=== PATIENT | female | born 1975 | race Two or more races ===

== ENCOUNTER 2016-12-13 12:25 | Emergency (ER) | payer MEDICAID ==
[~2016-12-13] VITALS: Ht 175.3 cm; Wt 119.3 kg
[~2016-12-13 12:25] MED LIST: DICL50TA4; GLYB2.5T8; INSUPOW; LISI-646; METF-370
[2016-12-13 13:44] VITALS: BP 132/87
[2016-12-13] MEDS ORDERED: cefTRIAXone SOD 1,000 MG VL IM ONE (14:15)
[2016-12-13 14:49] LABS: Urine Bacteria FEW /hpf (None Seen); Urine Blood 2+ /uL (Negative); Urine Specific Gravity 1.009 (1.001-1.035); Urine WBC 348 /hpf (0 - 5)
== END 2016-12-13 14:36 | disposition home or self-care (01) ==
LOC: ER 12:25
DX: N39.0 Urinary tract infection, site not specified (principal); E11.9 Type 2 diabetes mellitus without complications; I10 Essential (primary) hypertension
CPT/HCPCS: 81001; 96372; 99283; J0696

== ENCOUNTER 2017-01-12 12:55 | Emergency (ER) | payer MEDICAID ==
[~2017-01-12] VITALS: Ht 172.7 cm; Wt 119.3 kg
[2017-01-12 14:26] VITALS: BP 125/77
== END 2017-01-12 14:39 | disposition home or self-care (01) ==
LOC: ER 12:55
DX: H10.9 Unspecified conjunctivitis (principal); E11.9 Type 2 diabetes mellitus without complications; I10 Essential (primary) hypertension; Z79.4 Long term (current) use of insulin

== ENCOUNTER 2018-01-07 14:34 | Emergency (ER) | payer MEDICAID ==
[~2018-01-07] VITALS: Ht 172.7 cm; Wt 124.7 kg
[2018-01-07] MEDS ORDERED: LIDOCAINE 1% HCL (LOCAL ANESTH.) INJ 20ML MDV IJ ONE (15:00)
[2018-01-07] MEDS ORDERED: TETANUS-DIPTH-ACEL PERTUSSIS 0.5ML SYRG IM ONE (15:15)
[2018-01-07 15:20] VITALS: BP 130/83
== END 2018-01-07 15:28 | disposition home or self-care (01) ==
LOC: ER 14:34
DX: S61.411A Laceration without foreign body of right hand, initial encounter (principal); E11.9 Type 2 diabetes mellitus without complications; I10 Essential (primary) hypertension; W25.XXXA Contact with sharp glass, initial encounter; Y93.E9 Activity, other interior property and clothing maintenance; Y92.89 Other specified places as the place of occurrence of the external cause; Y99.8 Other external cause status
CPT/HCPCS: 12002; 90471; 90715; 99283; J2001

== ENCOUNTER 2018-06-17 09:28 | Emergency (ER) | payer MEDICAID ==
[~2018-06-17] VITALS: Ht 175.3 cm; Wt 125.2 kg
[2018-06-17 09:43] VITALS: BP 130/61
== END 2018-06-17 11:43 | disposition home or self-care (01) ==
LOC: ER 09:28
DX: L02.211 Cutaneous abscess of abdominal wall (principal); E11.9 Type 2 diabetes mellitus without complications; I10 Essential (primary) hypertension; Z90.49 Acquired absence of other specified parts of digestive tract; Z79.4 Long term (current) use of insulin
CPT/HCPCS: 10060; 99283; C1887

== ENCOUNTER 2018-11-05 19:15 | Emergency (ER) | payer MEDICAID ==
[~2018-11-05] VITALS: Ht 172.7 cm; Wt 111.6 kg
[2018-11-05 20:17] VITALS: BP 156/97
[2018-11-05] MEDS ORDERED: ACETAMINOPHEN/CODEINE#3 (300/30mg) TAB PO ONE (20:30)
== END 2018-11-05 20:36 | disposition home or self-care (01) ==
LOC: ER 19:18
DX: H10.33 Unspecified acute conjunctivitis, bilateral (principal); E11.9 Type 2 diabetes mellitus without complications; I10 Essential (primary) hypertension; Z90.49 Acquired absence of other specified parts of digestive tract

== ENCOUNTER 2019-02-12 10:41 | Emergency (ER) | payer MEDICAID ==
[~2019-02-12] VITALS: Ht 172.7 cm; Wt 107.5 kg
[2019-02-12 11:03] VITALS: BP 136/76
[2019-02-12 12:49] LABS: Basophils # (auto) 0 uL; Basophils % (auto) 0.4 % (0.0-2.0); Eosinophils # (auto) 0.1 uL; Eosinophils % (auto) 1.4 % (0.0-7.0); Hematocrit 43.8 % (36.0-46.0); Hemoglobin 14.5 g/dL (12.2-16.2); Lymphocytes # (auto) 1.5 uL; Lymphocytes % (auto) 23.9 % (10.0-50.0); Mean Corpuscular Hemoglobin 30.8 pg (28.0-32.0); Mean Corpuscular Hgb Conc. 33.1 g/dL (32.0-36.0); Mean Corpuscular Volume 92.9 fL (80.0-100.0); Monocytes # (auto) 0.4 uL; Monocytes % (auto) 5.9 % (0.0-12.0); Neutrophils # (auto) 4.3 uL; Neutrophils % (auto) 68.4 % (37.0-80.0); Platelet Count (auto) 180 10^3/uL (140-450); Red Blood Cells 4.71 10^6/uL (4.0-5.20); Red Cell Distribution Width 13.5 % (11.8-14.3); White Blood Cell 6.3 10^3/uL (4.4-10.8)
[2019-02-12 13:07] LABS: Anion Gap 6 (5-15); Blood Urea Nitrogen 12 mg/dL (7-18); Calcium 8.6 mg/dL (8.5-10.1); Carbon Dioxide 28 mmol/L (21-32); Chloride 99 mmol/L (98-107); Potassium 4.1 mmol/L (3.5-5.1); Sodium 133 mmol/L (136-145)
[2019-02-12 13:15] LABS: Alanine Aminotransferase 33 U/L (13-56); Alkaline Phosphatase 125 U/L (45-117); Aspartate Aminotransferase 22 U/L (15-37); BUN/Creatinine Ratio 12.8; Bilirubin, Total 0.4 mg/dL (0.2-1.0); GFR African American 84 mL/min; GFR Non-African American 69 mL/min; Total Protein 7.3 g/dL (6.4-8.2)
[2019-02-12 13:23] LABS: Glucose 524 mg/dL (74-106)
[2019-02-12] MEDS ORDERED: SODIUM CHLORIDE 0.9% 1,000 ML IV ONE ×2 (16:54)
[2019-02-12] MEDS ORDERED: MORPHINE SULFATE 4 MG/ML SYR/VIAL IV ONE (17:00)
[2019-02-12] MEDS ORDERED: ONDANSETRON HCL 4 MG/2 ML VIAL IV ONE (17:00)
[2019-02-12] MEDS ORDERED: InsuLIN REG 1unit/0.01ml Soln (100units/ml) IV ONE (18:00)
== END 2019-02-12 21:36 | disposition home or self-care (01) ==
LOC: ER 10:44
DX: S39.012A Strain of muscle, fascia and tendon of lower back, initial encounter (principal); E11.65 Type 2 diabetes mellitus with hyperglycemia; I10 Essential (primary) hypertension; Z90.49 Acquired absence of other specified parts of digestive tract; W00.0XXA Fall on same level due to ice and snow, initial encounter; Y93.89 Activity, other specified; Y92.89 Other specified places as the place of occurrence of the external cause; Y99.8 Other external cause status
CPT/HCPCS: 36415; 72100; 80053; 82962; 84484; 85025

== ENCOUNTER 2019-06-04 11:56 | Emergency (ER) | payer MEDICAID ==
[~2019-06-04] VITALS: Ht 175.3 cm; Wt 120.2 kg
[2019-06-04 12:25] VITALS: BP 141/92
[2019-06-04] MEDS ORDERED: ACETAMINOPHEN 500 MG TAB PO ONE (13:15)
== END 2019-06-04 13:15 | disposition home or self-care (01) ==
LOC: ER 11:56
DX: S80.212A Abrasion, left knee, initial encounter (principal); I10 Essential (primary) hypertension; E11.9 Type 2 diabetes mellitus without complications; W19.XXXA Unspecified fall, initial encounter; Y93.01 Activity, walking, marching and hiking; Y92.89 Other specified places as the place of occurrence of the external cause; Y99.8 Other external cause status
CPT/HCPCS: 73562

== ENCOUNTER 2019-11-03 13:12 | Emergency (ER) | payer MEDICAID ==
[~2019-11-03] VITALS: Ht 172.7 cm; Wt 111.6 kg
[2019-11-03 13:24] VITALS: BP 134/82
[2019-11-03] MEDS ORDERED: KETOROLAC TROMETH 60MG/2ML VIAL IM ONE (14:00)
== END 2019-11-03 14:18 | disposition home or self-care (01) ==
LOC: ER 13:12
DX: M77.9 Enthesopathy, unspecified (principal)
CPT/HCPCS: 73030; 96372; 99283; J1885

== ENCOUNTER 2019-11-09 10:36 | Emergency (ER) | payer MEDICAID ==
[~2019-11-09] VITALS: Ht 172.7 cm; Wt 111.6 kg
[2019-11-09 12:43] LABS: Basophils # (auto) 0 10 ^3/uL (0-0.2); Basophils % (auto) 0.3 % (0.0-2.0); Eosinophils # (auto) 0.1 10 ^3/uL (0-0.8); Eosinophils % (auto) 1.5 % (0.0-7.0); Hematocrit 46.8 % (36.0-46.0); Hemoglobin 15.5 g/dL (12.2-16.2); Lymphocytes # (auto) 1.6 10 ^3/uL (0.4-5.4); Lymphocytes % (auto) 25.2 % (10.0-50.0); Mean Corpuscular Hemoglobin 30.1 pg (28.0-32.0); Mean Corpuscular Hgb Conc. 33.1 g/dL (32.0-36.0); Mean Corpuscular Volume 90.8 fL (80.0-100.0); Monocytes # (auto) 0.4 10 ^3/uL (0-1.3); Monocytes % (auto) 6.7 % (0.0-12.0); Neutrophils # (auto) 4.2 10 ^3/uL (1.6-8.6); Neutrophils % (auto) 66.3 % (37.0-80.0); Platelet Count (auto) 186 10^3/uL (140-450); Red Blood Cells 5.15 10^6/uL (4.0-5.20); Red Cell Distribution Width 13.5 % (11.8-14.3); White Blood Cell 6.4 10^3/uL (4.4-10.8)
[2019-11-09 13:01] LABS: INR 1.01 (0.9-1.15); Partial Thromboplastin Time 25.9 sec (23.0-31.2)
[2019-11-09 13:02] LABS: Albumin 3.3 g/dL (3.4-5.0); Anion Gap 7 (5-15); Blood Urea Nitrogen 14 mg/dL (7-18); Calcium 8.8 mg/dL (8.5-10.1); Carbon Dioxide 25 mmol/L (21-32); Chloride 98 mmol/L (98-107); Glucose 391 mg/dL (74-106); Magnesium 2.2 mg/dL (1.6-2.6); Potassium 4.3 mmol/L (3.5-5.1); Sodium 130 mmol/L (136-145)
[2019-11-09 13:10] LABS: Alanine Aminotransferase 49 U/L (13-56); Alkaline Phosphatase 157 U/L (45-117); Aspartate Aminotransferase 28 U/L (15-37); BUN/Creatinine Ratio 19.2; Bilirubin, Total 0.7 mg/dL (0.2-1.0); GFR African American 111 mL/min; GFR Non-African American 92 mL/min; Total Protein 7.9 g/dL (6.4-8.2)
[2019-11-09 14:55] VITALS: BP 129/92
[2019-11-09] MEDS ORDERED: SODIUM CHLORIDE 0.9% 1,000 ML IVB ONE (15:15)
[2019-11-09] MEDS ORDERED: IOHEXOL 350 MG/ML 100ML IJ ONE (15:23)
== END 2019-11-09 15:59 | disposition left against medical advice (07) ==
LOC: ER 10:36
DX: R06.02 Shortness of breath (principal); E87.1 Hypo-osmolality and hyponatremia; R79.1 Abnormal coagulation profile; E11.9 Type 2 diabetes mellitus without complications; I10 Essential (primary) hypertension; Z20.828 Contact with and (suspected) exposure to other viral communicable diseases
CPT/HCPCS: 36415; 71045; 80053; 81025; 83605; 83735; 83880; 84443; 84484; 85025; 85379; 85610; 85730; 87040; 87426

== ENCOUNTER 2021-01-03 11:46 | Emergency (ER) | payer MEDICAID ==
[~2021-01-03] VITALS: Ht 172.7 cm; Wt 108.9 kg
[~2021-01-03 11:46] MED LIST changes: -LISI-646; +LISI20TA28
[2021-01-03] MEDS ORDERED: SODIUM CHLORIDE 0.9% 1,000 ML IV ONE ×2 (12:15)
[2021-01-03 12:41] LABS: Basophils # (auto) 0 10 ^3/uL (0-0.2); Basophils % (auto) 0.4 % (0.0-2.0); Eosinophils # (auto) 0.1 10 ^3/uL (0-0.8); Eosinophils % (auto) 1.8 % (0.0-7.0); Hematocrit 45.7 % (36.0-46.0); Hemoglobin 14.4 g/dL (12.2-16.2); Lymphocytes # (auto) 1.4 10 ^3/uL (0.4-5.4); Lymphocytes % (auto) 26.4 % (10.0-50.0); Mean Corpuscular Hemoglobin 28.4 pg (28.0-32.0); Mean Corpuscular Hgb Conc. 31.6 g/dL (32.0-36.0); Monocytes # (auto) 0.3 10 ^3/uL (0-1.3); Monocytes % (auto) 5.7 % (0.0-12.0); Neutrophils # (auto) 3.4 10 ^3/uL (1.6-8.6); Neutrophils % (auto) 65.7 % (37.0-80.0); Nucleated Red Blood Cells % 0.1 %; Red Blood Cells 5.08 10^6/uL (4.0-5.20); Red Cell Distribution Width 14.6 % (11.8-14.3); White Blood Cell 5.2 10^3/uL (4.4-10.8)
[2021-01-03] MEDS ORDERED: InsuLIN REG 1unit/0.01ml Soln (100units/ml) IV ONE ×2 (12:45→15:00)
[2021-01-03 12:56] LABS: Albumin 2.6 g/dL (3.4-5.0); Calcium 8.6 mg/dL (8.5-10.1); Potassium 4.7 mmol/L (3.5-5.1)
[2021-01-03 13:02] LABS: Urine Bacteria NONE SEEN /hpf (None Seen); Urine Blood 1+ /uL (Negative); Urine Specific Gravity 1.031 (1.001-1.035); Urine WBC 8 /hpf (0 - 5)
[2021-01-03 13:04] LABS: BUN/Creatinine Ratio 18.3; Bilirubin, Total 0.5 mg/dL (0.2-1.0); Total Protein 7.4 g/dL (6.4-8.2)
[2021-01-03] MEDS ORDERED: InsuLIN REG 1unit/0.01ml Soln (100units/ml) SC ONE (15:15)
[2021-01-03 16:00] VITALS: BP 146/74
== END 2021-01-03 16:03 | disposition home or self-care (01) ==
LOC: EDBD 11:46 → ER 11:46
DX: E11.10 Type 2 diabetes mellitus with ketoacidosis without coma (principal); I10 Essential (primary) hypertension; Z90.49 Acquired absence of other specified parts of digestive tract
CPT/HCPCS: 36415; 71045; 72100; 80053; 81001; 82962; 83036; 83880; 84484; 85025; 93005; 96361; 96372; 96374; 99285; J1815; J7030

== ENCOUNTER 2021-12-16 09:10 | Emergency (ER) | payer MEDICAID ==
[~2021-12-16] VITALS: Ht 172.7 cm; Wt 125.0 kg
[2021-12-16 09:41] VITALS: BP 183/111
[2021-12-16 10:26] LABS: Albumin 2.6 g/dL (3.4-5.0); Calcium 8.7 mg/dL (8.5-10.1); Potassium 4.4 mmol/L (3.5-5.1)
[2021-12-16 10:30] LABS: Basophils # (auto) 0 10 ^3/uL (0-0.2); Basophils % (auto) 0.3 % (0.0-2.0); Eosinophils # (auto) 0 10 ^3/uL (0-0.8); Eosinophils % (auto) 0.4 % (0.0-7.0); Hematocrit 39.2 % (36.0-46.0); Hemoglobin 12.5 g/dL (12.2-16.2); Lymphocytes # (auto) 1.5 10 ^3/uL (0.4-5.4); Lymphocytes % (auto) 15.5 % (10.0-50.0); Mean Corpuscular Hemoglobin 28.4 pg (28.0-32.0); Mean Corpuscular Hgb Conc. 31.9 g/dL (32.0-36.0); Mean Corpuscular Volume 88.9 fL (80.0-100.0); Monocytes # (auto) 0.7 10 ^3/uL (0-1.3); Monocytes % (auto) 7.6 % (0.0-12.0); Neutrophils # (auto) 7.2 10 ^3/uL (1.6-8.6); Neutrophils % (auto) 76.2 % (37.0-80.0); Red Blood Cells 4.41 10^6/uL (4.0-5.20); Red Cell Distribution Width 15.8 % (11.8-14.3); White Blood Cell 9.5 10^3/uL (4.4-10.8)
[2021-12-16 10:31] LABS: BUN/Creatinine Ratio 33.3; Bilirubin, Total 0.6 mg/dL (0.2-1.0); Total Protein 6.5 g/dL (6.4-8.2)
[2021-12-16] MEDS ORDERED: SODIUM CHLORIDE 0.9% 1,000 ML IV ONE (11:15)
[2021-12-16] MEDS ORDERED: PIPERACILLIN-TAZOB 3.375GM 100 ML IV ONE (11:15)
[2021-12-16] MEDS ORDERED: cloNIDine HCL 0.1 MG TAB PO ONE (11:15)
[2021-12-16] MEDS ORDERED: IOHEXOL 350 MG/ML 100ML IJ ONE (11:16)
[2021-12-16] MEDS ORDERED: HYDROcodone-ACET 5/325MG TAB PO ONE (15:00)
[2021-12-16] MEDS ORDERED: KETOROLAC TROMETH 60MG/2ML VIAL IM ONE (15:00)
[2021-12-16] MEDS ORDERED: CLIN300C8 PO (15:16)
[2021-12-16] MEDS ORDERED: CEPH-510 PO (15:16)
[2021-12-16] MEDS ORDERED: IBU600T PO (15:16)
== END 2021-12-16 15:20 | disposition home or self-care (01) ==
LOC: ER 09:10
DX: L03.115 Cellulitis of right lower limb (principal); E11.65 Type 2 diabetes mellitus with hyperglycemia; I16.0 Hypertensive urgency; I11.0 Hypertensive heart disease with heart failure; I50.9 Heart failure, unspecified; Z90.49 Acquired absence of other specified parts of digestive tract
CPT/HCPCS: 36415; 71275; 80053; 83605; 85025; 85379; 87040; 93971; 96365; 96366; 96372; 99285; J1885; J2543; J7030; Q9967

== ENCOUNTER 2022-01-18 10:59 | Inpatient (IN) | payer MEDICAID ==
[~2022-01-18] VITALS: Ht 172.7 cm; Wt 113.6 kg
[~2022-01-18 10:59] MED LIST changes: +CEPH-510 PO; +CLIN300C8 PO; +IBU600T PO
[2022-01-18 11:31] VITALS: BP 125/68
[2022-01-18 12:31] LABS: Urine Bacteria NONE SEEN /hpf (None Seen); Urine Blood 3+ /uL (Negative); Urine Hyaline Cast FEW /lpf (0 - 2); Urine Mucus FEW (None Seen); Urine Specific Gravity 1.029 (1.001-1.035); Urine WBC 21 /hpf (0 - 5)
[2022-01-18 13:15] LABS: Basophils # (auto) 0 10 ^3/uL (0-0.2); Basophils % (auto) 0.4 % (0.0-2.0); Eosinophils # (auto) 0.1 10 ^3/uL (0-0.8); Eosinophils % (auto) 0.8 % (0.0-7.0); Hemoglobin 12.4 g/dL (12.2-16.2); Lymphocytes # (auto) 1.5 10 ^3/uL (0.4-5.4); Lymphocytes % (auto) 21.4 % (10.0-50.0); Mean Corpuscular Hemoglobin 27.8 pg (28.0-32.0); Mean Corpuscular Hgb Conc. 31.8 g/dL (32.0-36.0); Mean Corpuscular Volume 87.4 fL (80.0-100.0); Monocytes # (auto) 0.4 10 ^3/uL (0-1.3); Monocytes % (auto) 5.1 % (0.0-12.0); Neutrophils # (auto) 5.2 10 ^3/uL (1.6-8.6); Neutrophils % (auto) 72.3 % (37.0-80.0); Nucleated Red Blood Cells % 0.1 %; Red Blood Cells 4.46 10^6/uL (4.0-5.20); Red Cell Distribution Width 15.8 % (11.8-14.3); White Blood Cell 7.2 10^3/uL (4.4-10.8)
[2022-01-18 13:48] LABS: Potassium 3.1 mmol/L (3.5-5.1)
[2022-01-18 13:49] LABS: Albumin 2.4 g/dL (3.4-5.0); BUN/Creatinine Ratio 20.8; Bilirubin, Total 0.3 mg/dL (0.2-1.0); Calcium 7.9 mg/dL (8.5-10.1); Magnesium 1.3 mg/dL (1.6-2.6); Total Protein 6.9 g/dL (6.4-8.2)
[2022-01-18] MEDS ORDERED: HYDROcodone-ACET 5/325MG TAB PO PRN (17:45)
[2022-01-18] MEDS ORDERED: ONDANSETRON HCL 4 MG/2 ML VIAL IV PRN (17:45)
[2022-01-18] MEDS ORDERED: ACETAMINOPHEN 325 MG TAB PO PRN (17:45)
[2022-01-18] MEDS ORDERED: DOCUSATE SOD 100 MG CAP PO PRN (17:45)
[2022-01-18] MEDS ORDERED: DEXTROSE (50%) 50ML SYRG IV PRN (18:45)
[2022-01-18] MEDS ORDERED: POTASSIUM CHL 20 Meq TABLET PO ONE (19:30)
[2022-01-18] MEDS ORDERED: MAGNESIUM SULFATE 1GM/100ML 100 ML IV SCH (20:00)
[2022-01-18] MEDS ORDERED: CLINDAMYCIN 600MG IV 50 ML IV SCH (22:00)
[2022-01-18] MEDS ORDERED: InsuLIN REG 1unit/0.01ml Soln (100units/ml) SC SCH (22:00)
[2022-01-18] MEDS ORDERED: ACCU-CHEK COMFORT CURVE STRIP VI SCH (22:00)
[2022-01-19] MEDS ORDERED: InsuLIN REG 1unit/0.01ml Soln (100units/ml) SC SCH (07:00)
[2022-01-19] MEDS ORDERED: PANTOPRAZOLE 40 MG/10 ML VIAL INJ IV SCH (10:00)
== END 2022-01-20 03:11 | disposition left against medical advice (07) | DRG 383 ==
LOC: ER 10:59 → OVERFLOW 17:41
PROVIDERS: ADMIT Nurse Practitioner Family; ATTEND Nurse Practitioner Family
DX: L03.115 Cellulitis of right lower limb (principal); E11.42 Type 2 diabetes mellitus with diabetic polyneuropathy; I50.9 Heart failure, unspecified; I11.0 Hypertensive heart disease with heart failure; E87.6 Hypokalemia; Z90.49 Acquired absence of other specified parts of digestive tract; Z53.29 Procedure and treatment not carried out because of patient's decision for other reasons
CPT/HCPCS: 36415; 73700; 80053; 81001; 83605; 83735; 85025; 87040; G0378

== ENCOUNTER 2022-10-08 00:02 | Emergency (ER) | payer MEDICAID ==
[~2022-10-08] VITALS: Ht 172.7 cm; Wt 115.0 kg
[~2022-10-08 00:02] MED LIST changes: +CLIN300C70 PO; -CLIN300C8 PO; -LISI20TA28; +LISI20TA56
[2022-10-08] MEDS ORDERED: IBUP-1456 PO (02:36)
[2022-10-08] MEDS ORDERED: KETOROLAC TROMETH 60MG/2ML VIAL IM ONE (02:45)
[2022-10-08 03:50] VITALS: BP 166/95; PULSE 97; RESP 18; TEMP 98.2; O2SAT 97
== END 2022-10-08 03:05 | disposition home or self-care (01) ==
LOC: ER 00:02
DX: S83.91XA Sprain of unspecified site of right knee, initial encounter (principal); E11.9 Type 2 diabetes mellitus without complications; I10 Essential (primary) hypertension; Z90.49 Acquired absence of other specified parts of digestive tract; W18.39XA Other fall on same level, initial encounter; Y93.89 Activity, other specified; Y92.89 Other specified places as the place of occurrence of the external cause; Y99.8 Other external cause status
CPT/HCPCS: 29505; 73562; 96372; 99283; J1885

== ENCOUNTER 2023-03-09 16:06 | Inpatient (IN) | payer MEDICAID ==
[~2023-03-09] VITALS: Ht 172.7 cm; Wt 129.5 kg
[~2023-03-09 16:06] MED LIST changes: +CLIN150C PO; +IBUP-1456 PO
[2023-03-09 18:19] LABS: Basophils # (auto) 0 10 ^3/uL (0-0.2); Basophils % (auto) 0.2 % (0.0-2.0); Eosinophils # (auto) 0.2 10 ^3/uL (0-0.8); Eosinophils % (auto) 1.7 % (0.0-7.0); Hematocrit 33.2 % (36.0-46.0); Hemoglobin 10.8 g/dL (12.2-16.2); Lymphocytes # (auto) 1.9 10 ^3/uL (0.4-5.4); Lymphocytes % (auto) 19.6 % (10.0-50.0); Mean Corpuscular Hemoglobin 29.8 pg (28.0-32.0); Mean Corpuscular Hgb Conc. 32.7 g/dL (32.0-36.0); Mean Corpuscular Volume 91.2 fL (80.0-100.0); Monocytes # (auto) 0.5 10 ^3/uL (0-1.3); Monocytes % (auto) 5.3 % (0.0-12.0); Neutrophils # (auto) 7.2 10 ^3/uL (1.6-8.6); Neutrophils % (auto) 73.2 % (37.0-80.0); Nucleated Red Blood Cells % 0.1 %; Red Blood Cells 3.64 10^6/uL (4.0-5.20); Red Cell Distribution Width 14.4 % (11.8-14.3); White Blood Cell 9.8 10^3/uL (4.4-10.8)
[2023-03-09 18:24] LABS: Chloride 103 mmol/L (98-107); Potassium 3.7 mmol/L (3.5-5.1); Sodium 136 mmol/L (136-145)
[2023-03-09 18:25] LABS: Anion Gap 4 (5-15); Calcium 8.6 mg/dL (8.7-10.4); Carbon Dioxide 29 mmol/L (20-30)
[2023-03-09 18:30] LABS: BUN/Creatinine Ratio 14.9 (10.0-20.0); Blood Urea Nitrogen 21 mg/dL (9-23); Glucose 222 mg/dL (74-106)
[2023-03-09] MEDS ORDERED: DEXTROSE (50%) 50ML SYRG IV PRN (21:00)
[2023-03-09] MEDS ORDERED: FUR20T PO (21:19)
[2023-03-09] MEDS: ACCU-CHEK COMFORT CURVE STRIP VI SCH (22:15)
[2023-03-09] MEDS: cefTRIAXone 1GM/50ML D5W 50 ML IV ONE (22:24)
[2023-03-09] MEDS: ONDANSETRON HCL 4 MG/2 ML VIAL IV PRN (22:31)
[2023-03-09] MEDS: HYDROcodone-ACET 5/325MG TAB PO PRN (22:31)
[2023-03-09] MEDS: InsuLIN REG 1unit/0.01ml Soln (100units/ml) SC SCH (22:32)
[2023-03-09] MEDS: VANCOMYCIN 1GM/200ML 200 ML IV ONE (22:34)
[2023-03-09] MEDS: PIPERACILLIN-TAZOB 3.375GM 100 ML IV SCH (23:13)
[2023-03-09] MEDS: SODIUM CHLORIDE 0.9% 1,000 ML IV ONE (23:25)
[2023-03-10 04:56] LABS: Basophils # (auto) 0 10 ^3/uL (0-0.2); Basophils % (auto) 0.2 % (0.0-2.0); Eosinophils # (auto) 0.1 10 ^3/uL (0-0.8); Eosinophils % (auto) 1.2 % (0.0-7.0); Hematocrit 32.9 % (36.0-46.0); Hemoglobin 10.8 g/dL (12.2-16.2); Lymphocytes # (auto) 1.3 10 ^3/uL (0.4-5.4); Lymphocytes % (auto) 13.7 % (10.0-50.0); Mean Corpuscular Hemoglobin 29.9 pg (28.0-32.0); Mean Corpuscular Hgb Conc. 32.9 g/dL (32.0-36.0); Mean Corpuscular Volume 90.9 fL (80.0-100.0); Monocytes # (auto) 0.6 10 ^3/uL (0-1.3); Monocytes % (auto) 6.3 % (0.0-12.0); Neutrophils # (auto) 7.7 10 ^3/uL (1.6-8.6); Neutrophils % (auto) 78.6 % (37.0-80.0); Red Blood Cells 3.62 10^6/uL (4.0-5.20); Red Cell Distribution Width 14.3 % (11.8-14.3); White Blood Cell 9.8 10^3/uL (4.4-10.8)
[2023-03-10 05:08] LABS: Alanine Aminotransferase 14 U/L (7-40); Albumin 3.5 g/dL (3.2-4.8); Alkaline Phosphatase 121 U/L (46-116); Anion Gap 7 (5-15); Aspartate Aminotransferase 15 U/L (13-40); BUN/Creatinine Ratio 18.8 (10.0-20.0); Bilirubin, Total 0.2 mg/dL (0.2-1.0); Blood Urea Nitrogen 24 mg/dL (9-23); Calcium 8.3 mg/dL (8.7-10.4); Carbon Dioxide 25 mmol/L (20-30); Chloride 104 mmol/L (98-107); Glucose 224 mg/dL (74-106); Potassium 4.1 mmol/L (3.5-5.1); Sodium 136 mmol/L (136-145); Total Protein 6.9 g/dL (5.7-8.2)
[2023-03-10 08:04] LABS: Urine Epithelial Cast None Seen /hpf (<5)
[2023-03-10 08:11] LABS: Urine Bacteria FEW /hpf (None Seen); Urine Blood 2+ /uL (Negative); Urine Clarity HAZY (Clear); Urine Color Yellow (Yellow); Urine Hyaline Cast FEW /lpf (0 - 2); Urine Protein, UAD 3+ (Negative); Urine Specific Gravity 1.019 (1.001-1.035); Urine Urobilinogen Normal (Negative); Urine WBC 273 /hpf (0 - 5); Urine WBC Clumps PRESENT /hpf (None Seen)
[2023-03-10] MEDS: LISINOPRIL 20 MG TAB PO SCH (10:15)
[2023-03-10] MEDS: FUROSEMIDE 20 MG TAB PO SCH (10:15)
[2023-03-10] MEDS: NIFEdipine ER 30 MG TAB PO ONE (14:52)
[2023-03-10] MEDS: INSULIN LANTUS (GLARGINE) 1 /0.01ml (100units/ml) SC SCH (22:17)
[2023-03-11 05:00] VITALS: BP 143/87; PULSE 88; RESP 18; TEMP 98; O2SAT 100
[2023-03-11 07:27] LABS: Basophils # (auto) 0 10 ^3/uL (0-0.2); Basophils % (auto) 0.5 % (0.0-2.0); Eosinophils # (auto) 0.2 10 ^3/uL (0-0.8); Eosinophils % (auto) 2.7 % (0.0-7.0); Hematocrit 29.8 % (36.0-46.0); Hemoglobin 9.8 g/dL (12.2-16.2); Lymphocytes # (auto) 1.8 10 ^3/uL (0.4-5.4); Lymphocytes % (auto) 25.2 % (10.0-50.0); Mean Corpuscular Hemoglobin 30.2 pg (28.0-32.0); Mean Corpuscular Hgb Conc. 32.9 g/dL (32.0-36.0); Mean Corpuscular Volume 91.6 fL (80.0-100.0); Monocytes # (auto) 0.6 10 ^3/uL (0-1.3); Monocytes % (auto) 8.7 % (0.0-12.0); Neutrophils # (auto) 4.6 10 ^3/uL (1.6-8.6); Neutrophils % (auto) 62.9 % (37.0-80.0); Nucleated Red Blood Cells % 0.1 %; Red Blood Cells 3.26 10^6/uL (4.0-5.20); Red Cell Distribution Width 14.2 % (11.8-14.3); White Blood Cell 7.4 10^3/uL (4.4-10.8)
[2023-03-11 07:41] LABS: Alanine Aminotransferase 14 U/L (7-40); Albumin 3.3 g/dL (3.2-4.8); Alkaline Phosphatase 98 U/L (46-116); Anion Gap 4 (5-15); Aspartate Aminotransferase 17 U/L (13-40); BUN/Creatinine Ratio 18.5 (10.0-20.0); Blood Urea Nitrogen 22 mg/dL (9-23); Calcium 8.8 mg/dL (8.5-10.1); Carbon Dioxide 27 mmol/L (20-30); Chloride 105 mmol/L (98-107); Glucose 274 mg/dL (74-106); LDL Cholesterol 76 mg/dL (< 100); Potassium 4.5 mmol/L (3.5-5.1); Sodium 136 mmol/L (136-145); Triglycerides 132 mg/dL (< 150)
[2023-03-11 07:42] LABS: Bilirubin, Total 0.2 mg/dL (0.2-1.0); Cholesterol 140 mg/dL (< 200); HDL Cholesterol 44 mg/dL (40-59); Total Protein 6.4 g/dL (5.7-8.2)
[2023-03-11 08:45] VITALS: BP 108/61; PULSE 84; RESP 16; TEMP 98; O2SAT 93
[2023-03-11] MEDS: NIFEdipine ER 30 MG TAB PO SCH (10:36)
[2023-03-11 12:33] VITALS: BP 144/81; PULSE 91; RESP 18; TEMP 97.9; O2SAT 95
[2023-03-11] MEDS ORDERED: VANCOMYCIN PER PHARMACY 0 MG IV SCH (14:00)
[2023-03-11] MEDS: VANCOMYCIN 1GM/200ML 200 ML IV ONE (15:29)
[2023-03-11] MEDS: INSULIN LANTUS (GLARGINE) 1 /0.01ml (100units/ml) SC ONE (15:36)
[2023-03-11 17:00] VITALS: BP 151/87; PULSE 90; RESP 18; TEMP 98.2; O2SAT 94
[2023-03-11] MEDS: MEROPENEM 1GM IVPB 50 ML IV SCH (17:36)
[2023-03-11 22:00] VITALS: BP 139/75; PULSE 88; RESP 16; TEMP 98; O2SAT 98
[2023-03-11] MEDS ORDERED: VANCOMYCIN 1GM/200ML 200 ML IV SCH (22:00)
[2023-03-11] MEDS: INSULIN LANTUS (GLARGINE) 1 /0.01ml (100units/ml) SC SCH (22:00)
[2023-03-12 05:00] VITALS: BP 140/69; PULSE 79; RESP 18; TEMP 98; O2SAT 98
[2023-03-12] MEDS: VANCOMYCIN 1GM/200ML 200 ML IV SCH (05:00)
[2023-03-12 07:30] VITALS: PULSE 83; RESP 18; O2SAT 95
[2023-03-12] MEDS: HYDROcodone-ACET 7.5/325MG TAB PO PRN (08:38)
[2023-03-12 09:00] VITALS: BP 142/79; PULSE 81; RESP 18; TEMP 97.7; O2SAT 93
[2023-03-12 13:00] VITALS: BP 165/93; PULSE 94; RESP 18; TEMP 97.6; O2SAT 98
[2023-03-12] MEDS: hydrALAZINE HCL 20 MG/ML VL IV PRN (13:30)
[2023-03-12 17:00] VITALS: BP 153/77; PULSE 91; RESP 18; TEMP 97.5; O2SAT 96
[2023-03-12 21:40] VITALS: BP 152/76; PULSE 91; RESP 16; TEMP 97.9; O2SAT 95
[2023-03-12] MEDS: INSULIN LANTUS (GLARGINE) 1 /0.01ml (100units/ml) SC SCH (23:26)
[2023-03-13] MEDS: VANCOMYCIN 1GM/200ML 200 ML IV SCH (00:57)
[2023-03-13 05:00] VITALS: BP 114/75; PULSE 89; RESP 18; TEMP 98.1; O2SAT 95
[2023-03-13 07:30] VITALS: PULSE 81; RESP 17; O2SAT 97
[2023-03-13 09:00] VITALS: BP 109/56; PULSE 90; RESP 16; TEMP 98.3; O2SAT 97
[2023-03-13] MEDS: NIFEdipine ER 30 MG TAB PO SCH (10:38)
[2023-03-13] MEDS: ACETAMINOPHEN 325 MG TAB PO PRN (12:38)
[2023-03-13 13:00] VITALS: BP 132/57; PULSE 92; RESP 18; TEMP 97.6; O2SAT 96
[2023-03-13 17:00] VITALS: BP 157/86; PULSE 90; RESP 16; TEMP 97.6; O2SAT 96
[2023-03-13] MEDS: DOCUSATE SOD 100 MG CAP PO PRN (21:48)
[2023-03-13 22:00] VITALS: BP 123/76; PULSE 95; RESP 14; TEMP 97.8; O2SAT 96
[2023-03-14] VITALS (7 sets, daily range): BP systolic 100–153; BP diastolic 51–92; PULSE 85–103; RESP 14–20; TEMP 97.9–98.4; O2SAT 94–95
[2023-03-14] MEDS: VANCOMYCIN 1GM/200ML 200 ML IV SCH (18:15)
[2023-03-15] VITALS (7 sets, daily range): BP systolic 113–139; BP diastolic 52–72; PULSE 90–94; RESP 17–20; TEMP 98.3–98.6; O2SAT 91–99
[2023-03-16] VITALS (7 sets, daily range): BP systolic 107–141; BP diastolic 61–82; PULSE 70–90; RESP 16–20; TEMP 36.4; O2SAT 91–99
[2023-03-17] VITALS (7 sets, daily range): BP systolic 117–156; BP diastolic 47–90; PULSE 83–98; RESP 16–18; TEMP 97.9–98.6; O2SAT 94–97
[2023-03-17 06:18] LABS: Basophils # (auto) 0 10 ^3/uL (0-0.2); Basophils % (auto) 0.3 % (0.0-2.0); Eosinophils # (auto) 0.2 10 ^3/uL (0-0.8); Eosinophils % (auto) 2.9 % (0.0-7.0); Hematocrit 30.2 % (36.0-46.0); Hemoglobin 9.9 g/dL (12.2-16.2); Lymphocytes # (auto) 1.7 10 ^3/uL (0.4-5.4); Mean Corpuscular Hgb Conc. 32.9 g/dL (32.0-36.0); Monocytes # (auto) 0.5 10 ^3/uL (0-1.3); Monocytes % (auto) 7.4 % (0.0-12.0); Neutrophils # (auto) 4.8 10 ^3/uL (1.6-8.6); Neutrophils % (auto) 66.4 % (37.0-80.0); Nucleated Red Blood Cells % 0.1 %; Red Blood Cells 3.32 10^6/uL (4.0-5.20); White Blood Cell 7.2 10^3/uL (4.4-10.8)
[2023-03-17 06:30] LABS: Anion Gap 4 (5-15); Carbon Dioxide 26 mmol/L (20-30); Chloride 107 mmol/L (98-107); Potassium 4.7 mmol/L (3.5-5.1); Sodium 137 mmol/L (136-145)
[2023-03-17 06:32] LABS: Calcium 8.7 mg/dL (8.5-10.1)
[2023-03-17 06:36] LABS: BUN/Creatinine Ratio 30.9 (10.0-20.0); Blood Urea Nitrogen 25 mg/dL (9-23); Glucose 79 mg/dL (74-106)
[2023-03-17] MEDS: AMPICILLIN & SULBACTAM SODIUM 3 GM in SODIUM CHL 0.9% 100 ML IV SCH (16:40)
[2023-03-18] VITALS (7 sets, daily range): BP systolic 110–159; BP diastolic 59–98; PULSE 85–98; RESP 16–19; TEMP 98.1–98.5; O2SAT 93–100
[2023-03-18 10:17] LABS: INR 1.06 (0.9-1.15); Prothrombin Time 11.1 sec (9.3-11.8)
[2023-03-18] MEDS ORDERED: fentaNYL CITRATE 100 MCG/2 ML VL ONE (12:35)
[2023-03-18] MEDS ORDERED: KETAMINE 50mg/ML 1ml syringe ONE (12:35)
[2023-03-18] MEDS ORDERED: MIDAZOLAM HCL 2MG/2ML 2ml VIAL (1mg/ml) ONE (12:36)
[2023-03-18] MEDS ORDERED: GLYCOPYRROLATE 0.2 MG/ML 1ML VIAL ONE (12:36)
[2023-03-18] MEDS ORDERED: ONDANSETRON HCL 4 MG/2 ML VIAL ONE (12:36)
[2023-03-18] MEDS ORDERED: PROPOFOL 10 MG/ML 20 ML IV ONE (12:36)
[2023-03-18] MEDS ORDERED: KETOROLAC TROMETH 30 MG/ML 1ML VIAL ONE (13:25)
[2023-03-18] MEDS ORDERED: HYDROmorphone HCL 2 MG/ML VL/or syr IV PRN (14:00)
[2023-03-18] MEDS: ACCU-CHEK COMFORT CURVE STRIP VI ONE (17:56)
[2023-03-19 05:00] VITALS: BP 133/72; PULSE 78; RESP 18; TEMP 98.1; O2SAT 96
[2023-03-19 05:35] LABS: Basophils # (auto) 0 10 ^3/uL (0-0.2); Basophils % (auto) 0.4 % (0.0-2.0); Eosinophils # (auto) 0.2 10 ^3/uL (0-0.8); Eosinophils % (auto) 2.7 % (0.0-7.0); Hematocrit 27.3 % (36.0-46.0); Hemoglobin 8.7 g/dL (12.2-16.2); Lymphocytes # (auto) 1.6 10 ^3/uL (0.4-5.4); Lymphocytes % (auto) 21.3 % (10.0-50.0); Mean Corpuscular Hemoglobin 29.4 pg (28.0-32.0); Mean Corpuscular Volume 91.9 fL (80.0-100.0); Monocytes # (auto) 0.6 10 ^3/uL (0-1.3); Monocytes % (auto) 8.3 % (0.0-12.0); Neutrophils # (auto) 5.2 10 ^3/uL (1.6-8.6); Neutrophils % (auto) 67.3 % (37.0-80.0); Red Blood Cells 2.97 10^6/uL (4.0-5.20); Red Cell Distribution Width 14.2 % (11.8-14.3); White Blood Cell 7.7 10^3/uL (4.4-10.8)
[2023-03-19 05:39] LABS: Chloride 107 mmol/L (98-107); Potassium 4.9 mmol/L (3.5-5.1); Sodium 137 mmol/L (136-145)
[2023-03-19 05:40] LABS: Anion Gap 3 (5-15); Carbon Dioxide 27 mmol/L (20-30)
[2023-03-19 05:41] LABS: Calcium 7.9 mg/dL (8.7-10.4)
[2023-03-19 05:45] LABS: Glucose 101 mg/dL (74-106)
[2023-03-19 05:46] LABS: BUN/Creatinine Ratio 28.8 (10.0-20.0); Blood Urea Nitrogen 32 mg/dL (9-23)
[2023-03-19 09:00] VITALS: BP 128/70; PULSE 92; RESP 20; TEMP 98; O2SAT 97
[2023-03-19] MEDS: HYDROmorphone HCL 2 MG/ML VL/or syr IV PRN (12:02)
[2023-03-19 12:31] VITALS: BP 119/61; PULSE 91; RESP 18; TEMP 98.4; O2SAT 94
[2023-03-19 20:00] VITALS: PULSE 90; RESP 17
[2023-03-19 22:00] VITALS: BP 146/74; PULSE 90; RESP 17; TEMP 98.9; O2SAT 98
[2023-03-19] MEDS: HYDROcodone-ACET 5/325MG TAB PO PRN (22:54)
[2023-03-20 04:00] VITALS: BP 113/72; PULSE 88; RESP 16; TEMP 98.1; O2SAT 94
[2023-03-20 09:00] VITALS: BP 123/73; PULSE 88; RESP 16; TEMP 98.4; O2SAT 91
[2023-03-20 13:00] VITALS: BP 122/73; PULSE 85; RESP 20; TEMP 98.6; O2SAT 94
[2023-03-20 17:00] VITALS: BP 124/68; PULSE 85; RESP 17; TEMP 98; O2SAT 93
[2023-03-20 20:00] VITALS: PULSE 92; RESP 20
[2023-03-20 22:00] VITALS: BP 135/76; PULSE 92; RESP 20; TEMP 98.1; O2SAT 95
[2023-03-20] MEDS: DAKINS QUARTER STR 0.125% (NaHypochlorite) 473 ML TOPICAL SOL TOP SCH (23:44)
[2023-03-21 05:00] VITALS: BP 126/70; PULSE 94; RESP 18; TEMP 99.1; O2SAT 94
[2023-03-21 09:00] VITALS: BP 114/63; PULSE 86; RESP 20; TEMP 98.1; O2SAT 95
[2023-03-21 13:00] VITALS: BP 139/77; PULSE 88; RESP 19; TEMP 98.3; O2SAT 96
[2023-03-21 17:00] VITALS: BP 133/65; PULSE 91; RESP 19; TEMP 98.4; O2SAT 94
[2023-03-21 22:00] VITALS: BP 141/75; PULSE 92; RESP 19; TEMP 97.8; O2SAT 96
[2023-03-22 05:00] VITALS: BP 152/89; PULSE 88; RESP 18; TEMP 99; O2SAT 94
[2023-03-22 09:00] VITALS: BP 130/79; PULSE 92; RESP 19; TEMP 98.1; O2SAT 93
[2023-03-22 12:54] VITALS: BP 132/80; PULSE 89; RESP 19; TEMP 98; O2SAT 94
[2023-03-22 16:59] VITALS: BP 121/76; PULSE 93; RESP 17; TEMP 98.4; O2SAT 95
[2023-03-22 22:00] VITALS: BP 112/68; PULSE 91; RESP 20; TEMP 98.4; O2SAT 92
[2023-03-23] VITALS (7 sets, daily range): BP systolic 120–128; BP diastolic 54–76; PULSE 90–97; RESP 12–20; TEMP 98.1–99; O2SAT 91–100
[2023-03-23] MEDS: FLEET ENEMA(ADULT) 135 ML PR ONE (00:15)
[2023-03-23] MEDS ORDERED: NIFE1TAB30 PO (11:51)
[2023-03-23] MEDS ORDERED: INSLANTI SC (11:51)
[2023-03-23] MEDS ORDERED: BACDST PO (11:51)
[2023-03-24 05:00] VITALS: BP 106/61; PULSE 97; TEMP 98.1; O2SAT 96
[2023-03-24 08:00] VITALS: BP 115/64; PULSE 88; RESP 20; TEMP 99; O2SAT 94
[2023-03-24 09:00] VITALS: BP 124/71; PULSE 80; RESP 20; TEMP 99; O2SAT 94
[2023-03-24] MEDS: FUROSEMIDE 40 MG/4 ML VIAL IV ONE (10:55)
[2023-03-24 12:47] VITALS: BP 115/64; PULSE 88; RESP 20; TEMP 99; O2SAT 94
[2023-03-24 13:00] VITALS: BP 136/78; PULSE 89; RESP 20; TEMP 98.3; O2SAT 98
[2023-03-24 13:13] VITALS: BP 145/80; TEMP 37.2
[2023-03-25] MEDS ORDERED: FUROSEMIDE 40 MG/4 ML VIAL IV SCH (10:00)
== END 2023-03-24 14:10 | disposition home health service (06) | DRG 305 ==
LOC: ER 16:06 → OVERFLOW 21:19 → WEST WING 03-11 03:27
PROVIDERS: ADMIT Nurse Practitioner Family; ATTEND Internal Medicine Geriatric Medicine
PROC: 0Y6J0Z3 Detachment at Left Lower Leg, Low, Open Approach (ICD-10-PCS; principal; 2023-03-18 13:17)
DX: E11.69 Type 2 diabetes mellitus with other specified complication (principal); N17.0 Acute kidney failure with tubular necrosis; E11.52 Type 2 diabetes mellitus with diabetic peripheral angiopathy with gangrene; E11.22 Type 2 diabetes mellitus with diabetic chronic kidney disease; L03.116 Cellulitis of left lower limb; D64.9 Anemia, unspecified; E11.42 Type 2 diabetes mellitus with diabetic polyneuropathy; L97.529 Non-pressure chronic ulcer of other part of left foot with unspecified severity; L03.032 Cellulitis of left toe; E11.621 Type 2 diabetes mellitus with foot ulcer; E11.65 Type 2 diabetes mellitus with hyperglycemia; N18.9 Chronic kidney disease, unspecified; I12.9 Hypertensive chronic kidney disease with stage 1 through stage 4 chronic kidney disease, or unspecified chronic kidney disease; N39.0 Urinary tract infection, site not specified; E66.01 Morbid (severe) obesity due to excess calories; Z68.39 Body mass index [BMI] 39.0-39.9, adult; Z82.49 Family history of ischemic heart disease and other diseases of the circulatory system; Z83.3 Family history of diabetes mellitus
CPT/HCPCS: 36415; 73630; 73718; 80048; 80053; 80061; 80202; 81001; 82565; 82962; 83036; 84443; 84702; 85025; 85610; 86850; 86900; 86901; 87040; 87070; 87075; 87077; 87186; 87205; 93925; 93971; G0378; J1815; J1885; J2185; J2250; J2405; J2704

== ENCOUNTER 2023-07-05 10:37 | Inpatient (IN) | payer MEDICAID ==
[~2023-07-05] VITALS: Ht 172.7 cm; Wt 115.6 kg
[~2023-07-05 10:37] MED LIST changes: -CEPH-510 PO; -CLIN150C PO; +CLIN1CAP70 PO; -CLIN300C70 PO; -DICL50TA4; +FUR20T PO; -GLYB2.5T8; +HYDR-4902 PO; -IBU600T PO; -IBUP-1456 PO; +INSLANTI SC; -LISI20TA56; +LISI20TA56 PO; +METF-1201 PO; -METF-370; +NIFE1TAB30 PO
[2023-07-05 11:45] LABS: Basophils # (auto) 0 10 ^3/uL (0-0.2); Basophils % (auto) 0.3 % (0.0-2.0); Eosinophils # (auto) 0.2 10 ^3/uL (0-0.8); Eosinophils % (auto) 1.9 % (0.0-7.0); Hematocrit 34.5 % (36.0-46.0); Hemoglobin 11.2 g/dL (12.2-16.2); Lymphocytes # (auto) 1.6 10 ^3/uL (0.4-5.4); Lymphocytes % (auto) 19.8 % (10.0-50.0); Mean Corpuscular Hemoglobin 28.3 pg (28.0-32.0); Mean Corpuscular Hgb Conc. 32.3 g/dL (32.0-36.0); Mean Corpuscular Volume 87.6 fL (80.0-100.0); Monocytes # (auto) 0.9 10 ^3/uL (0-1.3); Monocytes % (auto) 11.1 % (0.0-12.0); Neutrophils # (auto) 5.4 10 ^3/uL (1.6-8.6); Neutrophils % (auto) 66.9 % (37.0-80.0); Red Blood Cells 3.94 10^6/uL (4.0-5.20); Red Cell Distribution Width 15.3 % (11.8-14.3)
[2023-07-05 11:59] LABS: INR 1.06 (0.9-1.15); Partial Thromboplastin Time 27.7 SEC (24.5-34.5); Prothrombin Time 11.2 sec (9.3-11.8)
[2023-07-05 12:01] VITALS: PULSE 88; RESP 16; O2SAT 95
[2023-07-05 12:16] LABS: Erythrocyte Sedimentation Rate 87 mm/hr (0-20)
[2023-07-05 12:22] LABS: Alanine Aminotransferase 15 U/L (7-40); Albumin 3.8 g/dL (3.2-4.8); Alkaline Phosphatase 110 U/L (46-116); Anion Gap 4 (5-15); Aspartate Aminotransferase 19 U/L (13-40); BUN/Creatinine Ratio 12.3 (10.0-20.0); Bilirubin, Total 0.2 mg/dL (0.2-1.0); Blood Urea Nitrogen 20 mg/dL (9-23); Carbon Dioxide 28 mmol/L (20-30); Chloride 101 mmol/L (98-107); Glucose 193 mg/dL (74-106); Potassium 4.1 mmol/L (3.5-5.1); Sodium 133 mmol/L (136-145); Total Protein 7.5 g/dL (5.7-8.2)
[2023-07-05] MEDS ORDERED: CEFEPIME 1GM/ 50ML 50 ML IV ONE (12:30)
[2023-07-05 12:31] LABS: CRP High Sensitivity 8.09 mg/dL (<1.0)
[2023-07-05] MEDS: CLINDAMYCIN 600MG IV 50 ML IV ONE (13:33)
[2023-07-05] MEDS ORDERED: FUROSEMIDE 20 MG TAB PO PRN (13:45)
[2023-07-05] MEDS ORDERED: VANCOMYCIN PER PHARMACY 0 MG IV SCH (13:45)
[2023-07-05] MEDS ORDERED: ACETAMINOPHEN 325 MG TAB PO PRN ×2 (13:45)
[2023-07-05] MEDS ORDERED: DEXTROSE (50%) 50ML SYRG IV PRN (13:45)
[2023-07-05] MEDS ORDERED: FERR325T20 PO (13:59)
[2023-07-05] MEDS ORDERED: GABA-1251 PO (13:59)
[2023-07-05] MEDS: SODIUM CHLORIDE 0.9% 1,000 ML IV ONE (14:58)
[2023-07-05] MEDS: [UNRECOGNIZED DRUG - OTHER] PO SCH (15:18)
[2023-07-05] MEDS: FERROUS SULFATE PO SCH (15:18)
[2023-07-05] MEDS: MORPHINE SULFATE INJ 2 MG/ml SYRG IV PRN (15:18)
[2023-07-05] MEDS: NIFEdipine ER 30 MG TAB PO SCH (15:18)
[2023-07-05 16:18] VITALS: BP 135/110; PULSE 83; RESP 18; TEMP 97.8; O2SAT 100
[2023-07-05] MEDS: INFLUENZA QUAD 2023-2024 0.5 ML SYRG IM ONE (17:00)
[2023-07-05] MEDS ORDERED: PNEUMOCOCCAL VACC POLYS 25 MCG/0.5 ML VIAL IM ONE (17:00)
[2023-07-05] MEDS: InsuLIN REG 1unit/0.01ml Soln (100units/ml) SC SCH (17:00)
[2023-07-05] MEDS: ACCU-CHEK COMFORT CURVE STRIP VI SCH (17:08)
[2023-07-05 17:11] VITALS: BP 135/110; PULSE 83; RESP 21; TEMP 98.3; O2SAT 93
[2023-07-05 20:00] VITALS: RESP 17
[2023-07-05 21:00] VITALS: BP 127/75; PULSE 88; RESP 16; TEMP 98.1; O2SAT 97
[2023-07-05] MEDS: PIPERACILLIN-TAZOB 3.375GM 100 ML IV SCH (21:54)
[2023-07-05] MEDS: GABAPENTIN 400 MG CAP PO SCH (21:54)
[2023-07-05] MEDS: INSULIN LANTUS (GLARGINE) 1 /0.01ml (100units/ml) SC SCH (22:20)
[2023-07-06 05:00] VITALS: BP 121/66; PULSE 89; RESP 18; TEMP 98; O2SAT 95
[2023-07-06 06:09] LABS: Basophils # (auto) 0 10 ^3/uL (0-0.2); Basophils % (auto) 0.4 % (0.0-2.0); Eosinophils # (auto) 0.3 10 ^3/uL (0-0.8); Eosinophils % (auto) 3.9 % (0.0-7.0); Hematocrit 30.3 % (36.0-46.0); Hemoglobin 10.3 g/dL (12.2-16.2); Lymphocytes # (auto) 1.7 10 ^3/uL (0.4-5.4); Lymphocytes % (auto) 20.5 % (10.0-50.0); Mean Corpuscular Hemoglobin 29.8 pg (28.0-32.0); Mean Corpuscular Hgb Conc. 34.2 g/dL (32.0-36.0); Mean Corpuscular Volume 87.1 fL (80.0-100.0); Monocytes % (auto) 11.7 % (0.0-12.0); Neutrophils # (auto) 5.2 10 ^3/uL (1.6-8.6); Neutrophils % (auto) 63.5 % (37.0-80.0); Red Blood Cells 3.48 10^6/uL (4.0-5.20); Red Cell Distribution Width 15.3 % (11.8-14.3); White Blood Cell 8.2 10^3/uL (4.4-10.8)
[2023-07-06 06:11] LABS: Chloride 104 mmol/L (98-107); Potassium 4.2 mmol/L (3.5-5.1); Sodium 135 mmol/L (136-145)
[2023-07-06 06:12] LABS: Anion Gap 3 (5-15); Carbon Dioxide 28 mmol/L (20-30)
[2023-07-06 06:13] LABS: Calcium 8.9 mg/dL (8.7-10.4)
[2023-07-06 06:17] LABS: BUN/Creatinine Ratio 14.3 (10.0-20.0); Blood Urea Nitrogen 22 mg/dL (9-23); Glucose 116 mg/dL (74-106)
[2023-07-06 08:25] VITALS: BP 116/70; PULSE 100; RESP 22; TEMP 98.2; O2SAT 96
[2023-07-06] MEDS: ENOXAPARIN SOD 40 MG/0.4 ML SYRINGE SC SCH (08:53)
[2023-07-06] MEDS: FUROSEMIDE 20 MG TAB PO SCH (08:53)
[2023-07-06] MEDS ORDERED: cefTRIAXone 1GM/50ML D5W 50 ML IV SCH (09:00)
[2023-07-06 12:36] VITALS: BP 131/63; PULSE 83; RESP 18; TEMP 98.1; O2SAT 98
[2023-07-06 12:54] LABS: Phosphorus 5.1 mg/dL (2.4-5.1)
[2023-07-06 13:02] LABS: CRP High Sensitivity 7.08 mg/dL (<1.0)
[2023-07-06] MEDS ORDERED: ONDANSETRON HCL 4 MG/2 ML VIAL IV PRN (16:30)
[2023-07-06] MEDS ORDERED: SULF1TAB75 PO (16:57)
[2023-07-06] MEDS ORDERED: SILV-51 TOP (16:57)
[2023-07-06] MEDS ORDERED: CHOL20007 PO (16:57)
[2023-07-06] MEDS ORDERED: POTA-36 PO (16:57)
[2023-07-06 17:10] VITALS: BP 143/74; PULSE 88; RESP 18; TEMP 97.8; O2SAT 90
[2023-07-06 19:40] LABS: COVID19 ANTIGEN SOFIA FIA NEGATIVE (NEGATIVE)
[2023-07-06 19:41] LABS: Rapid Influenza A Negative (Negative); Rapid Influenza B Negative (Negative)
[2023-07-06 20:40] VITALS: BP 141/83; PULSE 89; RESP 21; TEMP 98.2; O2SAT 92
[2023-07-06] MEDS: POLYETHYLENE GLYCOL 17 GM PWDR PO PRN (21:24)
[2023-07-06] MEDS: INSULIN LANTUS (GLARGINE) 1 /0.01ml (100units/ml) SC SCH (21:30)
[2023-07-06] MEDS: LINEZOLID 600MG/300ML 300 ML IV SCH (22:41)
[2023-07-07 05:00] VITALS: BP 126/77; PULSE 81; RESP 18; TEMP 98.6; O2SAT 96
[2023-07-07 07:06] LABS: Basophils # (auto) 0 10 ^3/uL (0-0.2); Basophils % (auto) 0.3 % (0.0-2.0); Eosinophils # (auto) 0.3 10 ^3/uL (0-0.8); Eosinophils % (auto) 4.8 % (0.0-7.0); Hematocrit 32.1 % (36.0-46.0); Hemoglobin 10.3 g/dL (12.2-16.2); Lymphocytes # (auto) 1.7 10 ^3/uL (0.4-5.4); Lymphocytes % (auto) 25.5 % (10.0-50.0); Mean Corpuscular Hgb Conc. 31.9 g/dL (32.0-36.0); Mean Corpuscular Volume 87.8 fL (80.0-100.0); Monocytes # (auto) 0.6 10 ^3/uL (0-1.3); Monocytes % (auto) 8.4 % (0.0-12.0); Nucleated Red Blood Cells % 0.1 %; Red Blood Cells 3.66 10^6/uL (4.0-5.20); White Blood Cell 6.6 10^3/uL (4.4-10.8)
[2023-07-07 07:28] LABS: Alanine Aminotransferase 18 U/L (7-40); Albumin 3.5 g/dL (3.2-4.8); Alkaline Phosphatase 106 U/L (46-116); Anion Gap 5 (5-15); Aspartate Aminotransferase 16 U/L (13-40); BUN/Creatinine Ratio 15.9 (10.0-20.0); Blood Urea Nitrogen 23 mg/dL (9-23); Calcium 8.9 mg/dL (8.5-10.1); Carbon Dioxide 26 mmol/L (20-30); Chloride 103 mmol/L (98-107); Glucose 201 mg/dL (74-106); Potassium 4.7 mmol/L (3.5-5.1); Sodium 134 mmol/L (136-145)
[2023-07-07 07:29] LABS: Bilirubin, Total 0.2 mg/dL (0.2-1.0); Phosphorus 4.7 mg/dL (2.4-5.1); Total Protein 6.9 g/dL (5.7-8.2)
[2023-07-07 07:36] LABS: CRP High Sensitivity 5.37 mg/dL (<1.0)
[2023-07-07 08:30] VITALS: BP 136/79; PULSE 75; RESP 18; TEMP 98.1; O2SAT 95
[2023-07-07] MEDS: FUROSEMIDE 40 MG/4 ML VIAL IV ONE (09:16)
[2023-07-07] MEDS: DAKINS QUARTER STR 0.125% (NaHypochlorite) 473 ML TOPICAL SOL TOP SCH (10:40)
[2023-07-07 12:16] LABS: Urine Bacteria None Seen /hpf (None Seen); Urine Blood Negative /uL (Negative); Urine Clarity Clear (Clear); Urine Color Light-Yellow (Yellow); Urine Protein, UAD 2+ (Negative); Urine Specific Gravity 1.011 (1.001-1.035); Urine Urobilinogen Normal (Negative); Urine WBC 4 /hpf (0 - 5); Urine pH 5.5 (5.0-9.0)
[2023-07-07 12:20] LABS: Amphetamine Screen, Urine Neg (NEGATIVE); Barbiturate Scree,Urine Neg (NEGATIVE); Benzodiazephine Screen, Urine Neg (NEGATIVE); Cannabinoid Screen, Urine Neg (NEGATIVE); Cocaine Screen, Urine Neg (NEGATIVE); Opiate Scree,Urine Neg (NEGATIVE); Phencyclidine Screen, Urine Neg (NEGATIVE)
[2023-07-07 13:00] VITALS: BP 128/73; PULSE 90; RESP 18; TEMP 97.9; O2SAT 93
[2023-07-07 17:14] VITALS: BP 160/84; PULSE 85; RESP 17; TEMP 98.1; O2SAT 94
[2023-07-07] MEDS: FUROSEMIDE 40 MG/4 ML VIAL IV SCH (17:49)
[2023-07-07 21:00] VITALS: BP 144/75; PULSE 86; RESP 18; TEMP 98.2; O2SAT 93
[2023-07-07] MEDS: HYDROcodone-ACET 5/325MG TAB PO PRN (21:55)
[2023-07-08] VITALS (7 sets, daily range): BP systolic 95–149; BP diastolic 61–95; PULSE 66–81; RESP 16–21; TEMP 97–98; O2SAT 93–97
[2023-07-08 06:33] LABS: Basophils # (auto) 0 10 ^3/uL (0-0.2); Basophils % (auto) 0.3 % (0.0-2.0); Eosinophils # (auto) 0.3 10 ^3/uL (0-0.8); Hematocrit 34.4 % (36.0-46.0); Hemoglobin 11.3 g/dL (12.2-16.2); Lymphocytes # (auto) 1.9 10 ^3/uL (0.4-5.4); Lymphocytes % (auto) 29.2 % (10.0-50.0); Mean Corpuscular Hemoglobin 28.3 pg (28.0-32.0); Mean Corpuscular Hgb Conc. 32.7 g/dL (32.0-36.0); Mean Corpuscular Volume 86.5 fL (80.0-100.0); Monocytes # (auto) 0.6 10 ^3/uL (0-1.3); Monocytes % (auto) 8.6 % (0.0-12.0); Neutrophils # (auto) 3.7 10 ^3/uL (1.6-8.6); Neutrophils % (auto) 56.9 % (37.0-80.0); Nucleated Red Blood Cells % 0.2 %; Red Blood Cells 3.98 10^6/uL (4.0-5.20); Red Cell Distribution Width 14.8 % (11.8-14.3); White Blood Cell 6.5 10^3/uL (4.4-10.8)
[2023-07-08 06:53] LABS: Alanine Aminotransferase 15 U/L (7-40); Albumin 3.4 g/dL (3.2-4.8); Alkaline Phosphatase 104 U/L (46-116); Anion Gap 4 (5-15); Aspartate Aminotransferase 15 U/L (13-40); BUN/Creatinine Ratio 18.5 (10.0-20.0); Bilirubin, Total < 0.2 mg/dL (0.2-1.0); Blood Urea Nitrogen 27 mg/dL (9-23); Calcium 9.3 mg/dL (8.7-10.4); Carbon Dioxide 30 mmol/L (20-30); Chloride 99 mmol/L (98-107); Glucose 187 mg/dL (74-106); Magnesium 1.9 mg/dL (1.6-2.6); Phosphorus 4.2 mg/dL (2.4-5.1); Potassium 4.1 mmol/L (3.5-5.1); Sodium 133 mmol/L (136-145); Total Protein 7.2 g/dL (5.7-8.2)
[2023-07-08] MEDS: FLEET ENEMA(ADULT) 135 ML PR ONE (10:24)
[2023-07-08] MEDS ORDERED: EMPA1TAB PO (14:20)
[2023-07-08] MEDS ORDERED: CEPH250C PO (14:20)
[2023-07-08] MEDS ORDERED: ACET-1882 PO (14:20)
[2023-07-08] MEDS: PNEUMOCOCCAL VACC POLYS 25 MCG/0.5 ML VIAL IM ONE (17:26)
== END 2023-07-08 17:45 | disposition home health service (06) | DRG 349 ==
LOC: ER 10:37 → OVERFLOW 13:59 → WEST WING 15:34
PROVIDERS: ADMIT Internal Medicine Pulmonary Disease; ATTEND Emergency Medicine
DX: T87.43 Infection of amputation stump, right lower extremity (principal); N17.0 Acute kidney failure with tubular necrosis; J96.01 Acute respiratory failure with hypoxia; L03.115 Cellulitis of right lower limb; I50.33 Acute on chronic diastolic (congestive) heart failure; E11.22 Type 2 diabetes mellitus with diabetic chronic kidney disease; I13.0 Hypertensive heart and chronic kidney disease with heart failure and stage 1 through stage 4 chronic kidney disease, or unspecified chronic kidney disease; E11.40 Type 2 diabetes mellitus with diabetic neuropathy, unspecified; N18.32 Chronic kidney disease, stage 3b; Z20.822 Contact with and (suspected) exposure to COVID-19; E11.42 Type 2 diabetes mellitus with diabetic polyneuropathy; E66.01 Morbid (severe) obesity due to excess calories; Z68.38 Body mass index [BMI] 38.0-38.9, adult; Z88.8 Allergy status to other drugs, medicaments and biological substances; Z79.891 Long term (current) use of opiate analgesic; Z79.899 Other long term (current) drug therapy; Z79.4 Long term (current) use of insulin; Z90.49 Acquired absence of other specified parts of digestive tract; Z88.1 Allergy status to other antibiotic agents; Z82.3 Family history of stroke; Z83.3 Family history of diabetes mellitus; Z82.49 Family history of ischemic heart disease and other diseases of the circulatory system; Z91.199 Patient's noncompliance with other medical treatment and regimen due to unspecified reason; Z89.421 Acquired absence of other right toe(s)
CPT/HCPCS: 36415; 71045; 73630; 73718; 80048; 80053; 80061; 80307; 81001; 82306; 82607; 82962; 83036; 83605; 83690; 83735; 84100; 84443; 85025; 85610; 85652; 85730; 86141; 87040; 87077; 87081; 87186; 87205; 87426; 87804; 93925; 96365; 96375; G0378; J1815; J2543; J3490

== ENCOUNTER 2024-10-06 08:05 | Emergency (ER) | payer MEDICAID ==
[~2024-10-06] VITALS: Ht 172.7 cm; Wt 82.0 kg
[~2024-10-06 08:05] MED LIST changes: +ACET-1882 PO; +CEPH250C PO; +CHOL20007 PO; -CLIN1CAP70 PO; +EMPA1TAB PO; +FERR325T20 PO; -FUR20T PO; +FURO20TA4 PO; +GABA-1251 PO; -HYDR-4902 PO; +POTA-36 PO; +SILV-51 TOP
--- NOTE | 2024-10-06 08:36 | ED.PDOC ---
Musculoskeletal HPI Comments A 49 YEAR OLD FEMALE PRESENTS TO THE ED WITH COMPLAINT OF RIGHT 5TH FINGER PAIN. PATIENT STATES SHE WAS MOVING A HEAVY ROCK 2 DAYS AGO AND SHE ACCIDENTALLY ROLLED THIS ROCK ON HER RIGHT 5TH FINGER. PATIENT REPORTS SHE IS NOW EXPERIENCING RIGHT 5HT FINGER PAIN PAIN. PATIENT DENIES FEVER, CHILLS, SHORTNESS OF BREATH, CHEST PAIN, ABDOMINAL PAIN, NAUSEA, VOMITING, HEADACHE, OR OTHER COMPLAINTS. NO OTHER SYMPTOMS OR MODIFYING FACTORS AT THIS TIME. PATIENT IS ALERT, ORIENTED X 4, AND HAS STEADY GAIT. Chief Complaint: Upper Extremity Time Seen by MD: 08:13 Primary Care Provider: ANABEL Reviewed Notes: Nurses Notes, Medications, Allergies Allergies: Coded Allergies: Vancomycin (Verified Allergy, Unknown, 04/03/23) Home Meds Active Scripts Naproxen (Naproxen) 500 Mg Tab, 500 MG PO BID, #30 TAB Prov:MANSOOR BROCK 10/06/24 Cephalexin (KEFLEX CAPSULE) 250 Mg Cp, 1 CAP PO QID for 10 Days, #40 CAP Prov:JOSEMANUEL MATUTE 07/08/23 Empagliflozin (Jardiance) 10 Mg Tab, 10 MG PO DAILY for 30 Days, #30 TAB Prov:JOSEMANUEL MATUTE 07/08/23 Acetaminophen (Acetaminophen) 325 Mg Tab, 650 MG PO Q6HP PRN for 30 Days, #240 TAB Prov:JOSEMANUEL MATUTE 07/08/23 Insulin Glargine (Lantus) 100 Unit/Ml Inj, 40 UNIT SC BID, #1000 UNITS 5 Refills Prov:BIRD KELLY MD 03/23/23 Nifedipine (Nifedipine Er) 60 Mg Tab, 1 TAB PO DAILY, #30 TAB 5 Refills Prov:BIRD KELLY MD 03/23/23 Reported Medications Cholecalciferol (VITAMIN D3) 2,000 Unit Tab, 1 TAB PO DAILY 07/06/23 Potassium Chloride (POTASSIUM CHLORIDE CR) 10 Meq Tb, 8 MEQ PO DAILY 07/06/23 Silver Sulfadiazine (Silver Sulfadiazine) 1 % Cre, 1 APPLIC TOP DAILY Apply topically to the affected area every day. 07/06/23 Ferrous Sulfate (Ferosul) 325 Mg Tab, 1 TAB PO DAILY 07/05/23 Gabapentin (Gabapentin) 400 Mg Cap, 1 CAP PO BID 07/05/23 Metformin Hydrochloride (Metformin Hydrochloride) 850 Mg Tab, 850 MG PO TID, TAB 04/03/23 Furosemide (Furosemide) 20 Mg Tab, 1 TAB PO DAILY PRN for WATER RETENTION 03/09/23 Insulin (Insulin Human) Human Pow, for DIABETES 07/03/11 Lisinopril (Lisinopril) 20 Mg Tab, 1 TAB PO DAILY for BLOOD PRESSURE 07/03/11 Information Source: Patient Mode of Arrival: Ambulatory Location: Right Extremity Location: [place] Timing: Days Prehospital treatment: None Severity: Moderate Able to Move Extremity: Yes Bear Weight: Fully Pain: Moderate Mechanism: Crush Circumstances: Accident Onset of Symptoms: After Trauma Symptoms: Pain DVT Risk Factors: NONE Last Tetanus: Unknown Associated signs and symptoms: None Past Medical History PAST MEDICAL HISTORY: DM, HTN Surgical History: Cholecystectomy, 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 Family History Family History: Reviewed,noncontributory to illness Social History Smoker: Non-Smoker Alcohol: Occasionally Drugs: Denies Drug Use Lives In: Home Constitutional: denies: chills, diaphoresis, fatigue, fever, malaise, sweats, weakness, others EENTM: denies: blurred vision, double vision, ear bleeding, ear discharge, ear drainage, ear pain, ear ringing, eye pain, eye redness, hearing loss, mouth pain, mouth swelling, nasal discharge, nose bleeding, nose congestion, nose pain, photophobia, tearing, throat pain, throat swelling, voice changes, others Respiratory: denies: cough, hemoptysis, orthopnea, SOB at rest, shortness of breath, SOB with excertion, stridor, wheezing, others Cardiovascular: denies: chest pain, dizzy spells, diaphoresis, Dyspnea on exertion, edema, irregular heart beat, left arm pain, lightheadedness, palpitations, PND, syncope, others Gastrointestinal: denies: abdomen distended, abdominal pain, blood streaked bowels, constipated, diarrhea, dysphagia, difficulty swallowing, hematemesis, melena, nausea, poor appetite, poor fluid intake, rectal bleeding, rectal pain, vomiting, others Genitourinary: denies: abnormal vagina bleeding, burning, dyspareunia, dysuria, flank pain, frequency, hematuria, incontinence, pain, , vagina discharge, urgency, others Neurological: denies: dizziness, fainting, headache, left sided numbness, left sided weakness, numbness, paresthesia, pre-existing deficit, right sided numbness, right sided weakness, seizure, speech problems, tingling, tremors, weakness, others Musculoskeletal: reports: joint pain, joint swelling, others (RIGHT 5TH FINGER PAIN); denies: back pain, gout, muscle pain, muscle stiffness, neck pain Integumetry: denies: bruises, change in color, change in hair/nails, dryness, laceration, lesions, lumps, rash, wounds, others Allergic/Immunocompromised: denies: Difficulty Healing, Frequent Infections, Hives, Itching, others Hematologic/Lymphatic: denies: anemia, blood clots, easy bleeding, easy bruising, swollen glands, others Endocrine: denies: excessive hunger, excessive sweating, excessive thirst, excessive urination, flushing, intolerance to cold, intolerance to heat, unexplained weight gain, unexplained weight loss, others Psychiatric: denies: anxiety, bipolar disorder, depression, hopeless, panic disorder, schizophrenia, sleepless, suicidal, others All Other Systems: Reviewed and Negative Physical Exam General Appearance: No Apparent Distress, Normal HEENT: Normal ENT Inspection, PERRL/EOMI, Pharynx Normal, TMs Normal Neck: Full Range of Motion, Non-Tender, Normal, Normal Inspection Respiratory: Chest Non-Tender, Lungs Clear, No Accessory Muscle Use, No Respiratory Distress, Normal Breath Sounds Cardiovascular: No Edema, No JVD, No Murmur, No Gallop, Normal Peripheral Pulses, Regular Rate/Rhythm Breast Exam: Deferred Gastrointestinal: No Organomegaly, Non Tender, No Pulsatile Mass, Normal Bowel Sounds, Soft Genitalia: Deferred Pelvic: Deferred Rectal: Deferred Extremities: Decreased range of motion, No calf tenderness, Normal capillary refill, No pedal edema, Tender (AND MILD SWELLING ON RIGHT 3RD FINGER, NO DEFORMITY AND OPEN WOUND. 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 Was a procedure done?: No Differential Diagnosis EXT Differential Diagnosis: Fracture, Sprain, Dislocation, DJD, Contusion, Strain, Arthritis X-Ray, Labs, Meds, VS Vital Signs Date Time Temp Pulse Resp B/P (MAP) Pulse Ox O2 Delivery O2 Flow Rate FiO2 10/06/24 08:06 97.5 93 16 99/66 97 97.5 EXAM: XY R HAND 3 VIEW XRAY CLINICAL INDICATION: INJURY TECHNIQUE: XY R HAND 3 VIEW XRAY Comparison: XY R FOOT 3 VIEW XRAY on DOS: 07/05/23, XY R FOOT 3 VIEW XRAY on DOS: 04/10/23, XY R FOOT 3 VIEW XRAY on DOS: 04/03/23, XY L FOOT 3 VIEW XRAY on DOS: 04/01/23, XY L FOOT 3 VIEW XRAY on DOS: 03/09/23 FINDINGS/IMPRESSION: There is no evidence of acute fracture or dislocation. The visualized joint space is well maintained. The alignment is anatomical. There is no radiopaque foreign body. ATED BY: RIGOBERTO SIN MD DICTATED DATE/TIME: 10/06/24921 SIGNED BY: RIGOBERTO SIN MD SIGNED DATE/TIME: 10/06/24921 CC: X-Ray, Labs, Meds, VS Comment EXTERNAL MEDICAL RECORDS REVIEWED: [NONE] INDEPENDENT HISTORIANS: [NONE] SOCIAL DETERMINANTS OF HEALTH: [NONE] LABS ORDERED: NONE REVIEWED AND INTERPRETED RESULTS: NONE IMAGING ORDERED: XR HAND RT TREATMENTS ORDERED: FROG SPLINT APPLIED TO PATIENT'S RIGHT 5TH FINGER. PROCEDURES PERFORMED: NONE CRITICAL CARE TIME: NONE I HAVE DISCUSSED THE PATIENT WITH THE ATTENDING PHYSICIAN SHERRY AND HE AGREES WITH THE PATIENT'S PLAN OF CARE AND DISPOSITION. BASED ON HISTORY OF PRESENT ILLNESS, AND PHYSICAL EXAM, PATIENT WILL BE DISCHARGED HOME. DISCUSSED PLAN FOR DISCHARGE HOME WITH RX [NAPROXEN 500MG]. MEDICATION WARNINGS GIVEN. SHARED DECISION MAKING: DISCUSSED WITH PATIENT THAT THEIR WORKUP WAS NORMAL. PATIENT INSTRUCTED TO FOLLOW UP WITH PRIMARY CARE PROVIDER IN 1-2 DAYS FOR RE- EVALUATION OF SYMPTOMS. PATIENT VERBALIZES UNDERSTANDING TO RETURN TO ED FOR NEW OR WORSENING SYMPTOMS OR IF FOLLOW UP WITH PCP CANNOT BE OBTAINED. PATIENT FEELS COMFORTABLE GOING HOME AT THIS TIME. ALL QUESTIONS ADDRESSED AT TIME OF DISCHARGE. Images Reviewed?: Images reviewed and evaluated by me Time of 1ST Reevaluation: 09:34 Reevaluation 1ST: Improved Patient Education/Counseling: Diagnosis, Treatment, Need For Follow Up Family Education/Counseling: Diagnosis, Treatment, Need For Follow Up Medical Screening: No EMC Exist At This Time Departure 1 Departure Time of Disposition: :34 Impression: Primary Impression: Sprain of right little finger Qualified Codes: S63.616A - Unspecified sprain of right little finger, initial encounter Disposition: HOME / SELF CARE / HOMELESS Condition: Stable Additional Instructions: FOLLOW-UP WITH PCP IN 1 TO 2 DAYS. TAKE MEDICATIONS PRESCRIBED. RETURN TO ED FOR ANY NEW OR WORSENING SYMPTOMS. e-Prescriptions Naproxen (Naproxen) 500 Mg Tab 500 MG PO BID, #30 TAB Prov: MANSOOR BROCK 10/06/24 Discharged With: Self Critical Care Note Critical Care Time?: No Stability Stability form required: No I personally scribed for MANSOOR BROCK ([email or web address]) on 10/06/24 at 08:36. Electronically submitted by Thee [employer] ([employer]). I personally scribed for MANSOOR BROCK ([email or web address]) on 10/06/24 at 09:23. Electronically submitted by [employer]e [employer] ([employer]). I personally scribed for MANSOOR BROCK ([email or web address]) on 10/06/24 at 09:30. Electronically submitted by [employer]e [employer] ([employer]). MANSOOR BROCK Oct 06, 2024 08:36
[2024-10-06] MEDS ORDERED: NAPR-746 PO (09:22)
--- NOTE | 2024-10-06 09:25 | DVH ---
EXAM: XY R HAND 3 VIEW XRAY CLINICAL INDICATION: INJURY TECHNIQUE: XY R HAND 3 VIEW XRAY Comparison: XY R FOOT 3 VIEW XRAY on DOS: 07/05/23, XY R FOOT 3 VIEW XRAY on DOS: 04/10/23, XY R FOOT 3 VIEW XRAY on DOS: 04/03/23, XY L FOOT 3 VIEW XRAY on DOS: 04/01/23, XY L FOOT 3 VIEW XRAY on DOS: 03/09 FINDINGS/IMPRESSION: There is no evidence of acute fracture or dislocation. The visualized joint space is well maintained. The alignment is anatomical. There is no radiopaque foreign body.
[2024-10-06 09:39] VITALS: BP 118/88; PULSE 89; RESP 16; TEMP 97.7; O2SAT 98
== END 2024-10-06 09:41 | disposition home or self-care (01) ==
LOC: ER 08:05
DX: S63.616A Unspecified sprain of right little finger, initial encounter (principal); E11.9 Type 2 diabetes mellitus without complications; I10 Essential (primary) hypertension; Z90.49 Acquired absence of other specified parts of digestive tract; Z88.1 Allergy status to other antibiotic agents; Z79.899 Other long term (current) drug therapy; X58.XXXA Exposure to other specified factors, initial encounter; Y93.89 Activity, other specified; Y92.89 Other specified places as the place of occurrence of the external cause; Y99.8 Other external cause status
CPT/HCPCS: 29130; 73130